=== PATIENT | female | born 2000 | race Caucasian/White ===

== ENCOUNTER 2023-03-24 14:53 | Observation (INO) | payer OTHER ==
[~2023-03-24] VITALS: Ht 152.4 cm; Wt 85.4 kg
[~2023-03-24 14:53] MED LIST: IRON 27 MG PO; PRENATAL
--- NOTE | 2023-03-24 23:15 | NUR ---
PT TO UNIT VIA WHEELCHAIR WITH SPOUSE FOR OBSERVATION DUE TO RIGHT ADRENAL GLAND THROMBOSIS AT 30.4 WEEKS GESTATION.REPORT RECEIVED FROM JOCELIN CURRY NURSE. DR. LARRY IN ROOM UPON PT ARRIVAL TO THE UNIT TO EVALUATE AND DISCUSS PLAN OF CARE. ORDERS RECEIVED, SEE PHYSICIAN NOTIFICATION. VS OBTAINED, PAIN RATED AT 4/10, PT UP TO BATHROOM AND VOMITS UPON RETURNING TO BED. ZOFRAN AND MORPHINE GIVEN, SEE EMAR.
[2023-03-24 23:30] VITALS: BP 124/57; PULSE 86; TEMP 98.1
[2023-03-25 04:25] VITALS: BP 109/49; PULSE 75; TEMP 98
[2023-03-25 07:30] VITALS: BP 102/54; PULSE 72; TEMP 98.6
--- NOTE | 2023-03-25 08:45 | NUR ---
Dr. Hughes here, visits with patient.
--- NOTE | 2023-03-25 09:11 | NUR ---
Initial visit; Patient states she is doing alright at this time and thanked [facility] [employer] for looking in on her and offering God's blessings. [facility] offered comfort and encouraged patient to call on her while she is a patient here at our hospital.
[2023-03-25] MEDS ORDERED: LOVENOX 100100 MG/ML SQ (09:22)
[2023-03-25 11:30] VITALS: BP 127/73; PULSE 63; TEMP 97.9
[2023-03-25 14:45] VITALS: BP 102/48; PULSE 62; TEMP 98.3
[2023-03-25 16:57] LABS: CORTISOL, AM (0800) 18 ug/dL (3-20)
--- NOTE | 2023-03-25 19:05 | NUR ---
Note EFM monitor time 1 hr off. EFM tracing time As documented
[2023-03-25 19:14] LABS: FACTOR V LEIDEN MUTATION B Heterozygous (Negative)
[2023-03-25 19:30] VITALS: BP 120/70; PULSE 75; TEMP 99
--- NOTE | 2023-03-25 22:00 | NUR ---
Pt takes 1 Tylenol, gags and has 350cc emesis. Pt states "that pill was just too big. I have a hard time will swallowing pills" Encouraged pt to eat alittle bit of josh cracker and a few sips of water. I explained that we could crush her pills it she thought it would help. Pt states "I have a pill splitter right here."
--- NOTE | 2023-03-25 23:30 | NUR ---
Tylenol 1000mg and Oxycodone crushed and put in applesauce. Pt takes easily.
--- NOTE | 2023-03-26 00:10 | NUR ---
Pt crying, sobbing. When asked what was wrong, pt replied "I'm just hurting so much. I just can't take it anymore." when asked where the pain was, pt pointed to lower R back, stating "it's the same place it has been, nothing is helping"
--- NOTE | 2023-03-26 00:55 | NUR ---
To L&D via wheelchair for cont monitoring. Pt relaxed, social. Updated plan of care reviewed.
[2023-03-26 01:05] VITALS: BP 126/63; PULSE 70; TEMP 100
--- NOTE | 2023-03-26 02:35 | NUR ---
Pt reports pain is a 1 on 1-10 scale up to bathroom with steady gait. When back to bed explained to pt that I jaylyn give her Zofran now and then in 30min give Oxycodone. Pt shooses to have Zofran IV. Pt then asks "what will we do if pain gets up to 4 again?" explained that it would depend how long it had been since she had her last Oxycodone. Pt then asks "is it still 5mg?" Told her it was. Pt relaxed, social. Lights dimmed encouraged to rest.
[2023-03-26 02:40] VITALS: BP 107/65; PULSE 73; TEMP 99
--- NOTE | 2023-03-26 03:20 | NUR ---
Awakened for Oxycodone as previously discussed.
[2023-03-26 04:30] VITALS: BP 127/86; PULSE 64; TEMP 98.9
--- NOTE | 2023-03-26 04:33 | NUR ---
Turns to RL to sleep, FHT's not picking up. Into room to adjust monitor. Pt turned to WR.
[2023-03-26 07:38] VITALS: BP 106/60; PULSE 68; TEMP 98
== END 2023-03-26 11:50 | disposition home or self-care (01) ==
LOC: COL.ER 14:53 → OB 22:34
PROVIDERS: ADMIT Obstetrics & Gynecology
DX: O99.283 Endocrine, nutritional and metabolic diseases complicating pregnancy, third trimester (principal); O26.893 Other specified pregnancy related conditions, third trimester; E27.49 Other adrenocortical insufficiency; Z3A.30 30 weeks gestation of pregnancy
CPT/HCPCS: G0378; J1650; J2270; J2405; J7030; J7120; Q9967